=== PATIENT | male | born 1990 | race Two or more races ===

== ENCOUNTER 2017-04-06 11:24 | Emergency (ER) | payer BC ==
[~2017-04-06] VITALS: Ht 180.3 cm; Wt 75.7 kg
[2017-04-06 11:29] VITALS: BP 108/79
== END 2017-04-06 11:37 | disposition home or self-care (01) ==
LOC: ER 11:25
DX: T40.1X1A Poisoning by heroin, accidental (unintentional), initial encounter (principal); F17.200 Nicotine dependence, unspecified, uncomplicated; B19.20 Unspecified viral hepatitis C without hepatic coma; Y92.89 Other specified places as the place of occurrence of the external cause
CPT/HCPCS: 99283; A4606; Z7610

== ENCOUNTER 2020-02-11 12:36 | Emergency (ER) | payer BC, OTHER ==
[~2020-02-11] VITALS: Ht 180.3 cm; Wt 88.5 kg
--- NOTE | 2020-02-11 13:18 | NUR ---
BIBS FROM HOME TO ER BED 11. AAOX4. NOT IN RESP DISTRESS. AMBULATORY. CAME IN FOR BILAT LOWER LEG EDEMA FOR THE PAST2 WEEKS. PER PT, EDEMA THAT IS PRESENTED TODAY IS 40% BETTER THAT HOW IT WAS WHEN AT ITS WORST. NOTED BILAT LOWER LEG EDEMA + 4. WARM TO TOUCH AND EVEN ON BOTH LEGS. PER PT, HE HAS BEEN USING HERBAL DIURETIC TO HELP WITH SWELLING WELL ELEVATING. PT DENIES ANY HX OF HEART DISEASE. AWAITING MD FOR EVAL.
--- NOTE | 2020-02-11 14:45 | NUR ---
PT REFUSED BLOOD DRAWN. MADE AWARE.
[2020-02-11 15:07] VITALS: BP 115/65
--- NOTE | 2020-02-11 15:07 | NUR ---
Patient discharged to home in stable condition. Written and verbal after care instructions given. Patient verbalizes understanding of instruction. Pt ambulatory with a steady gait
== END 2020-02-11 15:08 | disposition home or self-care (01) ==
LOC: ER 12:40
DX: R60.0 Localized edema (principal); F41.9 Anxiety disorder, unspecified; F90.9 Attention-deficit hyperactivity disorder, unspecified type; F17.210 Nicotine dependence, cigarettes, uncomplicated
CPT/HCPCS: 93970-TC